=== PATIENT | female | born 1960 | race Caucasian/White ===

== ENCOUNTER 2019-04-24 13:57 | Emergency (ER) | payer BC ==
[~2019-04-24] VITALS: Ht 170.2 cm; Wt 97.7 kg
[2019-04-24] MEDS ORDERED: LANTINJ4 SC (14:12)
[2019-04-24] MEDS ORDERED: SIMV40TA2 PO (14:12)
[2019-04-24] MEDS ORDERED: RAMI1CAP26 PO (14:12)
[2019-04-24] MEDS ORDERED: ASPI81TA85 PO (14:12)
[2019-04-24] MEDS ORDERED: TRUL10IN SC (14:12)
[2019-04-24] MEDS ORDERED: FLUO20CA19 PO (14:12)
[2019-04-24] MEDS ORDERED: METF-791 PO (14:12)
[2019-04-24] MEDS ORDERED: ADACEL/BOOSTRIX VACCINE (DIPHTH/PERTUSS/ACELL/TETANUS)0.5ML SYR (90715) IM ONE (14:45)
--- NOTE | 2019-04-24 15:12 | REP ---
Clinical: Trauma. Technique: AP, lateral, bilateral oblique views of the left knee. Findings: There is a comminuted nondisplaced intra-articular fracture involving the lateral tibial plateau. Joint and suprapatellar effusion noted. Impression: Comminuted nondisplaced fracture of the lateral tibial plateau and swelling/effusion. Electronically Signed by Tyson Poon MD 04/24/2019 03:04 P
--- NOTE | 2019-04-24 16:27 | REP ---
Clinical: Trauma. Technique: Axial noncontrast images through the left knee with coronal and sagittal re-formations. Findings: There is a mildly depressed comminuted nondisplaced intra-articular fracture involving the lateral tibial plateau. Overlying swelling and joint effusion noted. Impression: Intra-articular fracture of the lateral tibial plateau with mild depression, soft tissue swelling and joint effusion. Electronically Signed by Tyson Poon MD 04/24/2019 04:18 P
[2019-04-24] MEDS ORDERED: PERC5TAB12 PO (16:42)
[2019-04-24 16:43] VITALS: BP 175/80
[2019-04-24] MEDS ORDERED: PERCOCET 5MG/325MG TAB PO ONE (16:45)
== END 2019-04-24 16:53 | disposition home or self-care (01) ==
LOC: M ED 13:57
DX: S82.145A Nondisplaced bicondylar fracture of left tibia, initial encounter for closed fracture (principal); W50.0XXA Accidental hit or strike by another person, initial encounter; Y92.89 Other specified places as the place of occurrence of the external cause; E11.9 Type 2 diabetes mellitus without complications; Z79.899 Other long term (current) drug therapy; Z79.82 Long term (current) use of aspirin; Z79.4 Long term (current) use of insulin